=== PATIENT | female | born 1995 | race African-American/Black ===

== ENCOUNTER 2021-03-11 17:13 | Emergency (ER) | payer OTHER ==
[2021-03-11 18:26] VITALS: BP 119/82; PULSE 69; TEMP 98; BMI 41.1
[2021-03-11 20:21] LABS: PH,URINE 5.5 (5.0-8.0); URINE APPEARANCE CLEAR; URINE BILIRUBIN NEGATIVE (NEGATIVE); URINE COLOR YELLOW; URINE GLUCOSE (UA) NEGATIVE (NEGATIVE); URINE KETONE 3+ (NEGATIVE); URINE LEUK ESTERASE NEGATIVE (NEGATIVE); URINE NITRITE NEGATIVE (NEGATIVE); URINE PROTEIN NEGATIVE (NEGATIVE); URINE UROBILINOGEN 0.2 mg/dL (0.2-1.0)
[2021-03-11 20:44] LABS: BASO % 0.8 % (0-2.0); EOS % 4.2 % (0-4.5); HEMATOCRIT 38.3 % (32.4-45.2); HEMOGLOBIN 12.8 GM/dL (10.7-15.3); LYMPH % 25.3 % (8-40); MCH 31.5 pg (25.7-33.7); MCHC 33.4 g/dl (32.0-36.0); MEAN CELL VOLUME 94.1 fl (80-96); MEAN PLT VOLUME 7.8 fl (7.5-11.1); MONO % 10.9 % (3.8-10.2); NEUT % 58.8 % (42.8-82.8); PLATELET COUNT 279 10^3/uL (134-434); RBC 4.07 M/mm3 (3.60-5.2); RDW 12.7 % (11.6-15.6); WHITE BLOOD COUNT 4.5 K/mm3 (4.0-10.0)
[2021-03-11 20:55] LABS: CHLORIDE 106 mmol/L (98-107); SODIUM 138 mmol/L (136-145)
[2021-03-11 20:57] LABS: ALBUMIN 3.6 g/dl (3.4-5.0); ANION GAP 7 MMOL/L (8-16); BLOOD UREA NITROGEN 11.6 mg/dL (7-18); CALCIUM 8.7 mg/dL (8.5-10.1); CO2 24 mmol/L (21-32); GLUCOSE,RANDOM 76 mg/dL (74-106)
[2021-03-11 21:00] LABS: CREATININE 0.8 mg/dL (0.55-1.3); SGOT/AST 21 U/L (15-37); SGPT/ALT 20 U/L (13-61)
[2021-03-11 21:02] LABS: BILIRUBIN,TOTAL 0.5 mg/dL (0.2-1); TOT PROT 7.8 g/dl (6.4-8.2)
[2021-03-11 21:03] LABS: ALK PHOS 71 U/L (45-117)
== END 2021-03-12 00:22 | disposition home or self-care (01) ==
LOC: JER 17:13
DX: R10.31 Right lower quadrant pain (principal)
CPT/HCPCS: 36415; 74177-TC; 80053; 81003; 82550; 82553; 84484; 84703; 85025; 87086; 87186; 93005; 93010; 99285-25; Q9967